=== PATIENT | female | born 1970 | race Caucasian/White ===

== ENCOUNTER 2017-12-04 04:07 | Emergency (ER) | payer OTHER ==
[2017-12-04] MEDS ORDERED: Guaifenesin DM 10 ML UDC ONE (04:24)
[2017-12-04] MEDS: Guaifenesin DM 10 ML UDC PO ONE (04:26)
[2017-12-04 05:05] LABS: HEMATOCRIT 38.2 % (41.0-60); HEMOGLOBIN 12.8 gm/dL (12-16); MEAN CELL VOLUME 84.7 fl (81-100); MEAN CORPUSCULAR HEMOGLOBIN 28.5 pg (27.0-31.0); MEAN CORPUSCULAR HGB CONC 33.7 pg (28.0-36.0); MEAN PLATELET VOLUME 9.2 fl; PLATELET COUNT 194 Th/cmm (150-400); RED BLOOD COUNT 4.51 Mil/cmm (3.80-5.10); RED CELL DISTRIBUTION WIDTH 12.2 % (11.5-20.0); WHITE BLOOD COUNT 7.6 Th/cmm (4.8-10.8)
[2017-12-04 05:06] LABS: MANUAL DIFF REQUIRED? YES
[2017-12-04 05:24] LABS: ALBUMIN 3.7 gm/dL (3.7-5.3); ALKALINE PHOSPHATASE 91 U/L (34-104); ANION GAP 10.5 (7.0-16.0); BILIRUBIN,TOTAL 0.4 mg/dL (0.3-1.0); BUN - UREA NITROGEN 4 mg/dL (7-25); CALCIUM SERUM 8.7 mg/dL (8.6-10.3); CARBON DIOXIDE 25.2 mEq/L (21.0-31.0); CHLORIDE 99 mEq/L (98-107); CREATININE - SERUM 0.4 mg/dL (0.6-1.2); GFR AFRICAN-AMERICAN > 60.0 ml/min (>90); GFR NON AFRICAN-AMERICAN > 60.0 ml/min; GLUCOSE 290 mg/dL (70-105); POTASSIUM SERUM 3.7 mEq/L (3.5-5.1); SGOT 27 U/L (13-39); SGPT/ALT 20 U/L (7-52); SODIUM SERUM 131 mEq/L (136-145); TOTAL PROTEIN,SERUM 7.3 gm/dL (6.0-8.3)
[2017-12-04 05:24] LABS: BAND NEUTROPHILE 1 % (0-10); EOSINOPHIL 2 % (0-5); LYMPHOCYTE 40 % (20-50); MONOCYTE 7 % (2-10); NEUTROPHILS 50 % (40-80); TOTAL CELLS COUNTED 100
[2017-12-04 05:25] LABS: PLATELET ESTIMATE ADEQUATE (NORMAL)
[2017-12-04 05:31] LABS: URINE MICROSCOPIC INDICATED? YES; URINE SOURCE RANDOM
[2017-12-04 05:34] LABS: URINE BILIRUBIN NEGATIVE (NEGATIVE); URINE BLOOD NEGATIVE (NEGATIVE); URINE GLUCOSE (UA) NEGATIVE (NEGATIVE); URINE KETONE NEGATIVE (NEGATIVE); URINE LEUKOCYTE ESTERASE NEGATIVE (NEGATIVE); URINE NITRATE NEGATIVE (NEGATIVE); URINE PH 6.5 (4.6 - 8.0); URINE PROTEIN NEGATIVE (NEGATIVE); URINE UROBILINOGEN 0.2 E.U./dL (0.2 - 1.0)
[2017-12-04 05:37] LABS: URINE CLARITY CLEAR (CLEAR); URINE COLOR OTHER
[2017-12-04 05:38] LABS: URINE BACTERIA FEW /hpf (NONE SEEN); URINE EPITHELIAL CELLS FEW /lpf (FEW); URINE RBC 0-2 /hpf (0-5); URINE WBC 0-2 /hpf (0-5)
[2017-12-04] MEDS ORDERED: Albuterol/Ipratropium Neb 3 ML AERS HHN ONE ×2 (05:40→05:58)
--- NOTE | 2017-12-04 05:41 | ED Physician Chart ---
ED Chief Complaint/HPI - Patient Information Date Seen:: 12/04/17 Time Seen:: 05:37 Chief Complaint:: Cough and SOB History of Present Illness:: 47 yo female developed cough and SOB, lost of voice for 3 days, chills, sweaty, no fever. Allergies:: Allergies Allergy/AdvReac Type Severity Reaction Status Date / Time No Known Allergies Allergy Verified 12/04/17 04:17 Vitals:: Vital Signs - 8 hr 12/04/17 04:10 Temp 97.6 F HR 86 RR 17 BP 136/78 O2 Sat % 98 ED Past Medical History - Past Medical History Past Medical History: DM Social History: Non Smoker, Alcohol, No Drug Use Surgical History: other (gastric bypass) Family Medical History - Family Member Mother History Unknown: Yes ED Physical Exam - Physical Examination Other Respiratory comments:: wheeze, crackles ED Labs/Radiology/EKG Results - Lab Results Results: Laboratory Tests 12/04/17 12/04/17 04:21 04:56 WBC 7.6 RBC 4.51 Hgb 12.8 Hct 38.2 L MCV 84.7 MCH 28.5 MCHC Differential 33.7 RDW 12.2 Plt Count 194 MPV 9.2 Band Neutrophils % 1 Neutrophils (Manual) 50 Lymphocytes 40 Monocytes 7 Eosinophils 2 Platelet Estimate ADEQUATE Sodium 131 L Potassium 3.7 Chloride 99 Carbon Dioxide 25.2 Anion Gap 10.5 BUN 4 L Creatinine 0.4 L Est GFR ( Amer) > 60.0 Est GFR (Non-Af Amer) > 60.0 BUN/Creatinine Ratio 10.0 Glucose 290 H Calcium 8.7 Total Bilirubin 0.4 AST 27 ALT 20 Alkaline Phosphatase 91 Total Protein 7.3 Albumin 3.7 Globulin 3.6 Albumin/Globulin Ratio 1.0 ED Septic Shock - <6hrs of presentation: Vital Signs: Vital Signs - 8 hr 12/04/17 04:10 Temp 97.6 F HR 86 RR 17 BP 136/78 O2 Sat % 98
[2017-12-04 05:53] LABS: INF A SCREEN NEG FOR INF A; INF B SCREEN NEG FOR INF B
[2017-12-04] MEDS ORDERED: Guaifenesin DM 10 ML UDC PO PRN (06:11)
[2017-12-04 06:20] LABS: pH 7.47 (7.35-7.45)
[2017-12-04 06:22] LABS: ALLEN TEST pos
--- NOTE | 2017-12-04 07:56 | Diagnostic Imaging Report ---
CHEST X-RAY: AP view INDICATION: Cough COMPARISON: None FINDINGS: Exam is limited due to body habitus and poor inspiration. Mild increased initial lung markings are noted with no focal consolidation or effusions. Heart size is normal. Osseous structures are intact. IMPRESSION: Limited exam due to body habitus. Mild increased interstitial lung markings are noted which may be accentuated by patient's low lung volumes. No focal consolidation is identified.
[2017-12-04 20:54] LABS: A1C % 10.1 % (4.0-6.0)
== END 2017-12-04 06:20 | disposition home or self-care (01) ==
LOC: ER 04:07
DX: R05 Cough (principal); R06.02 Shortness of breath; E11.9 Type 2 diabetes mellitus without complications
CPT/HCPCS: 36415-UA; 36600-90; 71045-TC; 80053-TC; 81001-TC; 82803-TC; 83036-90; 85007-TC; 85027-TC; 87804-TC